=== PATIENT | male | born 1950 | race Caucasian/White ===

== ENCOUNTER 2022-03-08 14:11 | Inpatient (IN) | payer MEDICARE, OTHER ==
[2022-03-08 15:15] LABS: #Lymphocytes 1.6 thou/uL (1.20-3.40); #Monocytes 1.3 thou/uL (0.11-0.59); #Neutrophils 6.1 thou/uL (1.40-6.50); %Basophils 0.5 % (0.0-1.0); %Eosinophils 0.2 % (0.0-10.0); %Monocytes 14.5 % (0.0-10.0); %Neutrophils 66.9 % (42.0-75.0); Hemoglobin 12.7 g/dL (14.0-18.0); Mean Corpuscular HGB CONC 32.4 g/dL (32.0-36.0); Mean Corpuscular Volume 92.6 fl (78.0-98.0); Mean Platelet Volume 7.8 fL (7.4-10.4); Platelet Count 189 10x3/uL (130-400); RBC Distribution Width 12.7 % (11.5-14.5); Red Blood Cell (RBC) Count 4.24 mill/uL (4.70-6.10)
[2022-03-08 15:30] LABS: ALT (SGPT) 16 U/L (8-55); AST (SGOT) 20 U/L (5-34); Albumin 4.4 g/dL (3.4-4.8); Alkaline Phosphatase 75 U/L (40-110); Anion Gap 15 mmol/L (10-20); BUN (Urea Nitrogen) 31 mg/dL (8.4-25.7); Bilirubin, Total 1.7 mg/dL (0.2-1.2); Calc. Creatinine Clearance 0 mL/min (70-130); Calcium 9.4 mg/dL (7.8-10.44); Carbon Dioxide 28 mmol/L (23-31); Chloride 108 mmol/L (98-107); Estimated GFR 64; Globulin 2.9 g/dL (2.4-3.5); Glucose 117 mg/dL (83-110); Potassium 3.9 mmol/L (3.5-5.1); Protein, Total 7.3 g/dL (5.8-8.1); Sodium 147 mmol/L (136-145)
[2022-03-08 15:36] LABS: Prothrombin Time 13.3 sec (12.0-14.7)
[2022-03-08 15:37] LABS: PTT 38.6 sec (22.9-36.1)
[2022-03-08] MEDS ORDERED: Ondansetron PF 4 MG/2 ML Vial IVP PRN (16:35)
[2022-03-08] MEDS ORDERED: Dextrose 5% in Water 1,000 ML IV PRN (16:35)
[2022-03-08] MEDS ORDERED: Dextrose 50% Abboject 50 ML SYRINGE SLOW IVP PRN (16:35)
[2022-03-08] MEDS ORDERED: Ondansetron ODT 4 MG TAB PO PRN (16:35)
[2022-03-08] MEDS ORDERED: Morphine 4 MG/ML VIAL SLOW IVP PRN ×2 (16:35→16:44)
[2022-03-08] MEDS ORDERED: Cyclobenzaprine 10 MG TAB PO PRN (16:45)
[2022-03-08] MEDS ORDERED: Ibuprofen 800 MG TAB PO PRN (16:45)
[2022-03-08] MEDS ORDERED: Acetaminophen/Codeine 30-300mg Tablet PO PRN (16:45)
[2022-03-08] MEDS: Acetaminophen 325 MG TAB PO SCH ×2 (21:34→23:54)
[2022-03-08] MEDS: Senokot S 8.6-50 MG TAB PO SCH (21:55)
[2022-03-08] MEDS: Famotidine 20 MG TAB PO SCH (21:55)
[2022-03-08 22:39] LABS: SARS-CoV-2 NAA Rapid Test Not Detected (NotDetected)
[2022-03-08] MEDS ORDERED: Sodium Chloride 0.9% 1,000 ML IV SCH (23:59)
[2022-03-08] MEDS ORDERED: Lactated Ringer's 1,000 ML IV SCH ×2 (23:59)
[2022-03-09 00:19] VITALS: BMI 23.8
[2022-03-09] MEDS: Acetaminophen 325 MG TAB PO SCH ×3 (05:21→17:46)
[2022-03-09 05:41] LABS: #Lymphocytes 1.5 thou/uL (1.20-3.40); #Monocytes 1.2 thou/uL (0.11-0.59); #Neutrophils 5.7 thou/uL (1.40-6.50); %Basophils 0.5 % (0.0-1.0); %Eosinophils 0.6 % (0.0-10.0); %Lymphocytes 17.7 % (21.0-51.0); %Monocytes 13.9 % (0.0-10.0); %Neutrophils 67.3 % (42.0-75.0); Hemoglobin 10.3 g/dL (14.0-18.0); Mean Corpuscular HGB CONC 31.9 g/dL (32.0-36.0); Mean Corpuscular Hemoglobin 29.4 pg (27.0-31.0); Mean Corpuscular Volume 92.3 fl (78.0-98.0); Mean Platelet Volume 7.8 fL (7.4-10.4); Platelet Count 153 10x3/uL (130-400); RBC Distribution Width 12.6 % (11.5-14.5); White Blood Cell (WBC) Count 8.5 10x3/uL (4.8-10.8)
[2022-03-09 06:02] LABS: Anion Gap 13 mmol/L (10-20); BUN (Urea Nitrogen) 36 mg/dL (8.4-25.7); Calc. Creatinine Clearance 67 mL/min (70-130); Calcium 8.6 mg/dL (7.8-10.44); Carbon Dioxide 26 mmol/L (23-31); Chloride 105 mmol/L (98-107); Estimated GFR 80; Glucose 112 mg/dL (83-110); Magnesium 2.2 mg/dL (1.6-2.6); Potassium 3.6 mmol/L (3.5-5.1); Sodium 140 mmol/L (136-145)
[2022-03-09] MEDS ORDERED: Haloperidol Lactate 5 MG/ML VIAL IM SCH (06:45)
[2022-03-09 06:56] LABS: Phosphorus 2.9 mg/dL (2.3-4.7)
[2022-03-09] MEDS ORDERED: diphenhydrAMINE 50 MG/ML VIAL IM SCH (07:00)
[2022-03-09] MEDS ORDERED: Aspirin 81 mg Enteric Coated Tablet PO SCH (09:00)
[2022-03-09] MEDS ORDERED: Potassium Chloride 20 MEQ TAB PO SCH (09:15)
[2022-03-09] MEDS: Carvedilol 6.25 MG TAB PO SCH ×2 (10:22→16:28)
[2022-03-09] MEDS: Aspirin 81 mg Enteric Coated Tablet PO SCH ×2 (10:24→20:21)
[2022-03-09] MEDS: Atorvastatin Calcium 10 MG TAB PO SCH (10:24)
[2022-03-09] MEDS: Folic Acid 1 MG TAB PO SCH (10:25)
[2022-03-09] MEDS: Polyethylene Glycol 3350 17 GM Packet PO SCH (10:25)
[2022-03-09] MEDS: Famotidine 20 MG TAB PO SCH ×2 (10:25→20:21)
[2022-03-09] MEDS: PARoxetine 20 MG TAB PO SCH (10:25)
[2022-03-09] MEDS: Tamsulosin HCl 0.4 MG CAP PO SCH (10:25)
[2022-03-09] MEDS: OLANZapine 5 MG TAB PO SCH ×2 (10:25→20:21)
[2022-03-09] MEDS: Senokot S 8.6-50 MG TAB PO SCH ×2 (10:25→20:31)
[2022-03-09] MEDS: Zinc Sulfate 220 MG CAP PO SCH (10:26)
[2022-03-09] MEDS: Thiamine 100 MG TAB PO SCH (10:26)
[2022-03-09 12:14] LABS: Bacteria/HPF 2+ HPF (None Seen); Bilirubin Negative (Negative); Blood, Urine 3+ (Negative); Clarity Clear (Clear); Glucose, Urine (Dipstick) Greater than 1000 mg/dL (Negative); Ketone, Urine Negative (Negative); Leukocyte 500 Leu/uL (Negative); Nitrite Negative (Negative); Protein, Urine (Dipstick) 30 mg/dL (Neg-Trace); RBC/HPF Greater than 50 HPF (0-3); Specific Gravity, Urine 1.032 (1.002-1.036); Squamous Epithelial 0-3 HPF (0-3); Urobilinogen Normal mg/dL (Less than 2); WBC/HPF 21-50 HPF (0-3); pH, Urine 5.5 (5.0-9.0)
[2022-03-09 12:16] LABS: Sperm/HPF Rare HPF (None Seen)
[2022-03-09] MEDS: Donepezil HCl 10 MG TAB PO SCH (20:21)
[2022-03-10] MEDS: Acetaminophen 325 MG TAB PO SCH ×4 (00:13→17:33)
[2022-03-10 04:51] LABS: #Eosinphils 0.2 thou/uL (0.0-0.7); #Lymphocytes 1.5 thou/uL (1.20-3.40); #Neutrophils 5.1 thou/uL (1.40-6.50); %Lymphocytes 19.8 % (21.0-51.0); %Monocytes 12.8 % (0.0-10.0); %Neutrophils 65.4 % (42.0-75.0); Hemoglobin 10.9 g/dL (14.0-18.0); Mean Corpuscular HGB CONC 31.7 g/dL (32.0-36.0); Mean Corpuscular Volume 91.6 fl (78.0-98.0); Mean Platelet Volume 7.9 fL (7.4-10.4); Platelet Count 169 10x3/uL (130-400); RBC Distribution Width 12.7 % (11.5-14.5); Red Blood Cell (RBC) Count 3.75 mill/uL (4.70-6.10); White Blood Cell (WBC) Count 7.8 10x3/uL (4.8-10.8)
[2022-03-10 05:08] LABS: Anion Gap 13 mmol/L (10-20); BUN (Urea Nitrogen) 33 mg/dL (8.4-25.7); Calc. Creatinine Clearance 63 mL/min (70-130); Calcium 8.5 mg/dL (7.8-10.44); Carbon Dioxide 25 mmol/L (23-31); Chloride 105 mmol/L (98-107); Estimated GFR 75; Glucose 130 mg/dL (83-110); Magnesium 2.2 mg/dL (1.6-2.6); Phosphorus 2.5 mg/dL (2.3-4.7); Potassium 3.6 mmol/L (3.5-5.1); Sodium 139 mmol/L (136-145)
[2022-03-10] MEDS ORDERED: Potassium Chloride 20 MEQ TAB PO SCH (08:15)
[2022-03-10] MEDS: Carvedilol 6.25 MG TAB PO SCH ×2 (09:16→17:35)
[2022-03-10] MEDS: Atorvastatin Calcium 10 MG TAB PO SCH (09:17)
[2022-03-10] MEDS: Aspirin 81 mg Enteric Coated Tablet PO SCH ×2 (09:17→21:54)
[2022-03-10] MEDS: Thiamine 100 MG TAB PO SCH (09:18)
[2022-03-10] MEDS: Famotidine 20 MG TAB PO SCH ×2 (09:18→21:54)
[2022-03-10] MEDS: PARoxetine 20 MG TAB PO SCH (09:20)
[2022-03-10] MEDS: Folic Acid 1 MG TAB PO SCH (09:20)
[2022-03-10] MEDS: Zinc Sulfate 220 MG CAP PO SCH (09:21)
[2022-03-10] MEDS: OLANZapine 5 MG TAB PO SCH ×2 (09:21→21:53)
[2022-03-10] MEDS: Tamsulosin HCl 0.4 MG CAP PO SCH (09:21)
[2022-03-10] MEDS: Senokot S 8.6-50 MG TAB PO SCH ×2 (10:59→21:54)
[2022-03-10] MEDS: Polyethylene Glycol 3350 17 GM Packet PO SCH (10:59)
[2022-03-10] MEDS: Donepezil HCl 10 MG TAB PO SCH (21:54)
[2022-03-11] MEDS: Acetaminophen 325 MG TAB PO SCH ×4 (00:21→12:18)
[2022-03-11] MEDS: Carvedilol 6.25 MG TAB PO SCH (08:20)
[2022-03-11] MEDS: Atorvastatin Calcium 10 MG TAB PO SCH (08:21)
[2022-03-11] MEDS: Aspirin 81 mg Enteric Coated Tablet PO SCH (08:21)
[2022-03-11] MEDS: OLANZapine 5 MG TAB PO SCH (08:22)
[2022-03-11] MEDS: Folic Acid 1 MG TAB PO SCH (08:22)
[2022-03-11] MEDS: Famotidine 20 MG TAB PO SCH (08:22)
[2022-03-11] MEDS: PARoxetine 20 MG TAB PO SCH (08:23)
[2022-03-11] MEDS: Tamsulosin HCl 0.4 MG CAP PO SCH (08:23)
[2022-03-11] MEDS: Thiamine 100 MG TAB PO SCH (08:24)
[2022-03-11] MEDS: Zinc Sulfate 220 MG CAP PO SCH (08:24)
[2022-03-11] MEDS: Senokot S 8.6-50 MG TAB PO SCH (08:24)
[2022-03-11] MEDS: Polyethylene Glycol 3350 17 GM Packet PO SCH (08:24)
[2022-03-11 08:32] VITALS: BP 148/71; TEMP 97.8
== END 2022-03-11 12:00 | DRG 964 ==
LOC: ERS 14:11 → SURG B 16:31 → SURG A 03-09 03:07
PROVIDERS: ADMIT Surgery; ATTEND Surgery
DX: S32.402A Unspecified fracture of left acetabulum, initial encounter for closed fracture (principal); S36.892A Contusion of other intra-abdominal organs, initial encounter; I13.0 Hypertensive heart and chronic kidney disease with heart failure and stage 1 through stage 4 chronic kidney disease, or unspecified chronic kidney disease; S32.592A Other specified fracture of left pubis, initial encounter for closed fracture; I50.42 Chronic combined systolic (congestive) and diastolic (congestive) heart failure; E78.5 Hyperlipidemia, unspecified; K21.9 Gastro-esophageal reflux disease without esophagitis; F17.210 Nicotine dependence, cigarettes, uncomplicated; N18.30 Chronic kidney disease, stage 3 unspecified; F25.0 Schizoaffective disorder, bipolar type; E11.22 Type 2 diabetes mellitus with diabetic chronic kidney disease; S01.81XA Laceration without foreign body of other part of head, initial encounter; F03.90 Unspecified dementia, unspecified severity, without behavioral disturbance, psychotic disturbance, mood disturbance, and anxiety; C44.91 Basal cell carcinoma of skin, unspecified; R33.9 Retention of urine, unspecified; W18.30XA Fall on same level, unspecified, initial encounter; Z20.822 Contact with and (suspected) exposure to COVID-19; Z88.0 Allergy status to penicillin; Z98.890 Other specified postprocedural states; Z79.899 Other long term (current) drug therapy; Z79.82 Long term (current) use of aspirin; E53.9 Vitamin B deficiency, unspecified
CPT/HCPCS: 36415; 70450; 71045; 72192; 80048; 80053; 81003; 81015; 83735; 84100; 85025; 85610; 85730; 87086; 93005; G0390; J1200; J1630; J7120; U0002